=== PATIENT | female | born 1950 ===

== ENCOUNTER → 2023-03-22 | Outpatient (CLI) | payer MEDICARE ==
[~2023-03-22] VITALS: Ht 162.6 cm; Wt 73.0 kg
[~2023-03-22] MED LIST: ACET-2123 PO; ALBU18HF12 IH; AMLO-258 PO; ANAS1TAB50 PO; ASPI-1192 PO; ASPI-1450 PO; ATOR20TA PO; BECL10.6 IH; BIFI4CAP PO; CA/D1TAB7 PO; CARV3 PO; CETI-450 PO; DICY-1 PO; ESCI20TA87 PO; ESOM20CA39 PO; FINA1TAB17 PO; FLUT16SP NASAL; FURO40 PO; GABA-1181 PO; IBUP-1493 PO; LOPE-232 PO; LORA-1000 PO; LUTE1CAP5 PO; MAGN400T57 PO; MELA5TAB40 PO; METO-296 PO; MINOXIDIL PO; MONT-35 PO; MULT-1192 PO; NUTRAFOL PO; OMEG-102 PO; SPIR-37 PO; SUMA100T21 PO; TIZA-194 PO; TRAZ-252 PO; VALS160T2 PO; VITA-328 PO; VIVISCAL PO; ZOLP-162 PO
[2023-03-22 11:36] VITALS: BP 113/59; PULSE 60; RESP 18; TEMP 98.4; O2SAT 98
== END | disposition home or self-care (01) ==
LOC: SRCNTR 11:25
PROVIDERS: ATTEND Internal Medicine Pulmonary Disease
DX: I10 Essential (primary) hypertension (principal); C50.919 Malignant neoplasm of unspecified site of unspecified female breast; M96.1 Postlaminectomy syndrome, not elsewhere classified; Z90.10 Acquired absence of unspecified breast and nipple; Z79.899 Other long term (current) drug therapy; Z88.8 Allergy status to other drugs, medicaments and biological substances; Z82.49 Family history of ischemic heart disease and other diseases of the circulatory system; Z98.890 Other specified postprocedural states
CPT/HCPCS: G0463